=== PATIENT | male | born 1945 | race Caucasian/White ===

== ENCOUNTER 2024-06-22 09:31 | Outpatient (CLI) | payer MEDICARE, SELFPAY ==
--- NOTE | 2024-06-22 11:10 | P.ANES_ITS ---
Anesthesia Charges Start Date/Time Anesthesia Start Date: 06/22/24 Anesthesia Start Time: 10:46 Stop Date/Time Anesthesia Stop Date: 06/22/24 Anesthesia Stop Time: 11:08 Summary Extremes of Age - Over 70 or under 1: MIXER CRANE OPERATOR Coding CPT Codes CPT Codes: RONI LWR INTST NDSC NOS - [id number] ([id number]) P2 - PATIENT W/MILD SYST DISEASE, QK - TOPOLOGY PROFESSOR 2-4 CNCRNT ANEBabar PROC, QX - MIXER CRANE OPERATOR SVC W/ MD MED DIRECTION Additional Codes: Summary - Extremes of Age - Over 70 or under 1: MIXER CRANE OPERATOR ([id number])
--- NOTE | 2024-06-22 11:10 | P.ANES_ITS ---
Anesthesia Charges Start Date/Time Anesthesia Start Date: 06/22/24 Anesthesia Start Time: 10:46 Stop Date/Time Anesthesia Stop Date: 06/22/24 Anesthesia Stop Time: 11:08 Summary Extremes of Age - Over 70 or under 1: SHELTER SUPERVISOR Coding CPT Codes CPT Codes: RONI LWR INTST NDSC NOS - [id number] ([id number]) P2 - PATIENT W/MILD SYST DISEASE, QK - AIRPLANE PILOT COMMERCIAL 2-4 CNCRNT ANEBabar PROC, QX - SHELTER SUPERVISOR SVC W/ MD MED DIRECTION Additional Codes: Summary - Extremes of Age - Over 70 or under 1: SHELTER SUPERVISOR ([id number])
--- NOTE | 2024-06-22 11:10 | W.ANESCHARGE ---
Anesthesia Charges Start Date/Time Anesthesia Start Date: 06/22/24 Anesthesia Start Time: 10:46 Stop Date/Time Anesthesia Stop Date: 06/22/24 Anesthesia Stop Time: 11:08 Summary Extremes of Age - Over 70 or under 1: LAUNCH ENGINEER Coding CPT Codes CPT Codes: RONI LWR INTST NDSC NOS - [id number] ([id number]) P2 - PATIENT W/MILD SYST DISEASE, QK - ACTIVITIES AIDE 2-4 CNCRNT ANEBabar PROC, QX - LAUNCH ENGINEER SVC W/ MD MED DIRECTION Additional Codes: Summary - Extremes of Age - Over 70 or under 1: LAUNCH ENGINEER ([id number])
--- NOTE | 2024-06-22 11:10 | W.ANESCHARGE ---
Anesthesia Charges Start Date/Time Anesthesia Start Date: 06/22/24 Anesthesia Start Time: 10:46 Stop Date/Time Anesthesia Stop Date: 06/22/24 Anesthesia Stop Time: 11:08 Summary Extremes of Age - Over 70 or under 1: COPPER MINER BLASTING Coding CPT Codes CPT Codes: RONI LWR INTST NDSC NOS - [id number] ([id number]) P2 - PATIENT W/MILD SYST DISEASE, QK - MANAGER CLIENT 2-4 CNCRNT ANEBabar PROC, QX - COPPER MINER BLASTING SVC W/ MD MED DIRECTION Additional Codes: Summary - Extremes of Age - Over 70 or under 1: COPPER MINER BLASTING ([id number])
== END 2024-06-22 09:32 | disposition home or self-care (01) ==
PROVIDERS: PCP Family Medicine; Visit Provider Internal Medicine Gastroenterology
DX: Z12.11 Encounter for screening for malignant neoplasm of colon (principal); D12.0 Benign neoplasm of cecum; K57.30 Diverticulosis of large intestine without perforation or abscess without bleeding; Z86.0100 Personal history of colon polyps, unspecified
CPT/HCPCS: 00811; 45385; 88305; 99100; J2704